=== PATIENT | female | born 1975 | race African-American/Black ===

== ENCOUNTER 2025-02-12 02:50 | Emergency (ER) | payer SELFPAY ==
[~2025-02-12] VITALS: Ht 160 cm; Wt 113.0 kg
[2025-02-12 03:38] VITALS: O2SAT 96
[2025-02-12 03:44] VITALS: O2SAT 100
[2025-02-12] MEDS: KETOROLAC 30MG/ML VIAL IM ONE (05:53)
[2025-02-12] MEDS ORDERED: METH-653 MT (07:08)
[2025-02-12 07:37] VITALS: BP 150/90; PULSE 80; RESP 18; TEMP 36.8
== END 2025-02-12 07:38 | disposition home or self-care (01) ==
LOC: ER 02:50
DX: M54.9 Dorsalgia, unspecified (principal); I10 Essential (primary) hypertension; Z98.890 Other specified postprocedural states
CPT/HCPCS: 99283; 81025; 96372; J1885